=== PATIENT | female | born 1990 | race Hispanic/Latino ===

== ENCOUNTER 2023-10-15 12:18 | Day surgery (SDC) | payer SELFPAY ==
[2023-10-15] MEDS ORDERED: EPINEPHrine 1 MG/ML VIAL ONE (12:55)
[2023-10-15] MEDS ORDERED: Bupivacaine 0.25% HCL 30 ML VIAL ONE (12:55)
[2023-10-15] MEDS ORDERED: Famotidine/PF 20 mg/2ml Vial ONE (12:57)
[2023-10-15] MEDS ORDERED: PROPOFOL 20 ML ONE ×2 (13:05→14:34)
[2023-10-15] MEDS ORDERED: fentaNYL PF 100 MCG/2 ML SYRINGE ONE (13:05)
[2023-10-15] MEDS ORDERED: SUGAMMADEX SODIUM 200 MG/2 ML VIAL ONE ×2 (13:06→14:23)
[2023-10-15] MEDS ORDERED: Midazolam HCl 2 mg/2 ml Vial ONE (13:06)
[2023-10-15] MEDS ORDERED: ePHEDrine Sulfate 50 MG/10 ML VIAL ONE (13:35)
[2023-10-15] MEDS ORDERED: fentaNYL 50 mcg/mL 1 mL Vial ONE ×2 (14:44→15:09)
[2023-10-15] MEDS ORDERED: HYDROcodone/Acetaminophen 5/325 mg Tablet ONE (15:24)
[2023-10-15] MEDS ORDERED: Acetaminophen/Codeine 30-300mg Tablet PO PRN (15:24)
== END 2023-10-15 16:08 | disposition home or self-care (01) ==
LOC: SDC 12:18
PROVIDERS: ATTEND Student in an Organized Health Care Education/Training Program
PROC: 0DTJ4ZZ Resection of Appendix, Percutaneous Endoscopic Approach (ICD-10-PCS; principal; 2023-10-15)
DX: K35.80 Unspecified acute appendicitis (principal); E66.9 Obesity, unspecified; Z79.899 Other long term (current) drug therapy
CPT/HCPCS: 88304; A4649; J0171; J0665; J2250; J2704; J3010; S0028